=== PATIENT | female | born 1990 | race Caucasian/White ===

== ENCOUNTER 2020-12-01 18:11 | Emergency (ER) | payer MEDICAID ==
[~2020-12-01] VITALS: Ht 154.9 cm; Wt 72.7 kg
[~2020-12-01 18:11] MED LIST: ACETAMINOPHEN325 MG PO; IBUPROFEN600 MG PO; PERCOCET 5-3251 TAB PO; PRENATAL-U CA1 UDCAP
[2020-12-01 18:17] VITALS: BP 138/102
[2020-12-01 18:51] LABS: BASOPHILS 0.2 % (0-2); HEMATOCRIT 34.8 % (36.0-48.0); HEMOGLOBIN 11.4 g/dL (12-16); IMMATURE GRANULOCYTES 0.3 % (0-5); LYMPHOCYTE ABS# 2.18 10x3/uL (1.18-3.74); LYMPHOCYTES 20.9 % (15-50); MCH 28.1 pg (26.0-34.0); MCHC 32.8 g/dL (31.0-37.0); MCV 85.9 fL (80.0-100.0); MEAN PLATELET VOLUME 10.2 fL (7.4-10.4); MONOCYTES 6.1 % (2-11); NEUTROPHIL ABS# 7.45 10x3/uL (1.56-6.13); NEUTROPHILS 71.5 % (40-80); RBC 4.05 10x6/uL (4.00-5.40); RDW 14.4 % (11.5-14.5); WBC 10.4 10x3/uL (4.8-10.8)
[2020-12-01 18:53] LABS: PLATELET COUNT 199 10x3/uL (130-400)
[2020-12-01 18:56] LABS: HCG SERUM NEGATIVE (NEGATIVE)
[2020-12-01 18:58] LABS: CALC OSMOLALITY 279 mosm/kg (275-300); CALCIUM 8.7 mg/dL (8.5-10.1); CARBON DIOXIDE 27.2 mmol/L (21.0-32.0); CHLORIDE - SERUM 101 mmol/L (98-107); CREATININE - SERUM 0.9 mg/dL (0.6-1.3); GLUCOSE 110 mg/dL (74-106); POTASSIUM - SERUM 3.5 mmol/L (3.5-5.1); SODIUM 139 mmol/L (136-145); UREA NITROGEN 16 mg/dL (7-18); eGFR NON AFRICAN AMERICAN 78 mL/min (90-120)
[2020-12-01 19:11] LABS: ALBUMIN 3.8 g/dL (3.4-5.0); ALKALINE PHOSPHATASE 62 U/L (30-120); ALT (SGPT) 33 U/L (10-68); BILIRUBIN - TOTAL 0.11 mg/dL (0.2-1.3); HCG - QUANTITATIVE (MATERNAL) 563 mIU/mL; PROTEIN - SERUM 7.4 g/dL (6.4-8.2)
[2020-12-01 19:56] LABS: BILIRUBIN NEGATIVE (NEGATIVE); KETONE NEGATIVE (NEGATIVE); NITRITE NEGATIVE (NEGATIVE); UROBILINOGEN NORMAL mg/dL (< 2)
[2020-12-01 19:57] LABS: SQUAMOUS EPITHELIAL 0-5 HPF (0-4); WHITE CELLS - URINE 0-5 HPF (0-4)
[2020-12-01 19:58] LABS: AMORPHOUS SEDIMENT MODERATE LPF (NONE SEEN); BACTERIA FEW HPF (NONE SEEN)
[2020-12-01] MEDS ORDERED: MACROBID100 MG PO (21:05)
[2020-12-01 22:54] VITALS: Ht 154.9 cm; Wt 72.7 kg
== END 2020-12-01 23:48 | disposition home or self-care (01) ==
LOC: D.ER 18:11
PROVIDERS: Family Medicine
DX: O03.9 Complete or unspecified spontaneous abortion without complication (principal); N39.0 Urinary tract infection, site not specified